=== PATIENT | male | born 1940 | race Caucasian/White ===

== ENCOUNTER 2018-02-04 12:29 | Emergency (ER) | payer MEDICARE, BC ==
[2018-02-04 12:29] VITALS: O2SAT 98
[2018-02-04 12:51] VITALS: BP 179/84; PULSE 52; RESP 16; TEMP 96.4
== END 2018-02-04 12:51 | disposition home or self-care (01) | DRG 151 ==
LOC: ED 12:29
DX: R04.0 Epistaxis (principal)
CPT/HCPCS: 99282

== ENCOUNTER 2018-02-25 10:10 | Day surgery (SDC) | payer MEDICARE, BC ==
[~2018-02-25 10:10] MED LIST: LIDOCAINE HCL 1% MPF 30 SOL ONE; PROPOFOL 500 MG/50 ML EMU IV ONE
[2018-02-25 12:20] VITALS: BP 161/82; PULSE 51; RESP 16; TEMP 98.2; O2SAT 99
== END 2018-02-25 12:35 | disposition home or self-care (01) | DRG 951 ==
LOC: SURG 10:10
PROVIDERS: ATTEND Surgery
DX: Z12.11 Encounter for screening for malignant neoplasm of colon (principal)
CPT/HCPCS: G0121; J2001; J2704

== ENCOUNTER 2019-04-06 11:00 | Emergency (ER) | payer MEDICARE, BC ==
[2019-04-06] MEDS ORDERED: TICAGRELOR 90 MG TAB PO ONE ×2 (11:08→11:11)
[2019-04-06] MEDS ORDERED: SODIUM CHLORIDE 0.9% FLUSH 10 ML SOL IV PRN (11:08)
[2019-04-06] MEDS ORDERED: ASPIRIN 81 MG CHEWABLE CTB PO STA (11:08)
[2019-04-06] MEDS ORDERED: HEPARIN SODIUM 5000 U/ML SOL IV ONE (11:08)
[2019-04-06] MEDS ORDERED: MORPHINE SULFATE 10 MG/ML SOL IV PRN (11:08)
[2019-04-06] MEDS ORDERED: HEPARIN SODIUM 5000 U/ML SOL ONE ×2 (11:11→11:41)
[2019-04-06] MEDS ORDERED: ASPIRIN 81 MG CHEWABLE CTB ONE (11:11)
[2019-04-06 11:16] LABS: BASOPHILS % (AUTO) 1 % (0-3); EOSINOPHILS % (AUTO) 6 % (0-9); HEMATOCRIT 45 % (39-53); HEMOGLOBIN 14.7 gm/dl (13.5-17.7); LYMPHOCYTES % (AUTO) 19.5 % (10-50); MEAN CORPUSCULAR HEMOGLOBIN 31.9 pg (27.0-32.0); MEAN CORPUSCULAR HGB CONC 32.6 gm/dl (32.0-36.0); MEAN CORPUSCULAR VOLUME 98 fL (80-100); MONOCYTES % (AUTO) 11.5 % (0-12); NEUTROPHILS % (AUTO) 62.3 % (37-80)
[2019-04-06] MEDS ORDERED: NITROGLYCERIN 0.4 MG TAB SL ONE (11:16)
[2019-04-06 11:22] LABS: INR 1.01 (0.86-1.12)
[2019-04-06] MEDS: NITROGLYCERIN 0.4 MG TAB SL PRN ×3 (11:22→11:40)
[2019-04-06 11:27] VITALS: TEMP 97
[2019-04-06 11:28] LABS: ALBUMIN 3.3 gm/dl (3.4-5.0); BILIRUBIN,TOTAL 0.3 mg/dl (0.2-1.0); CALCIUM 8.4 mg/dl (8.5-10.1); CARBON DIOXIDE 27.8 mEq/L (21-32); CREATININE 0.99 mg/dl (0.80-1.30); TOTAL PROTEIN 6.8 gm/dl (6.4-8.2); TROP I 0.164 ng/ml (0.000-0.056)
[2019-04-06] MEDS ORDERED: HEPARIN SODIUM 5000 U/ML 25,000 U in DEXTROSE 250 ML 250 ML IV SCH (11:45)
[2019-04-06 13:19] VITALS: O2SAT 96
[2019-04-06 13:20] VITALS: BP 161/83; PULSE 49; RESP 14
== END 2019-04-06 11:58 | disposition short-term general hospital (02) | DRG 282 ==
LOC: ED 11:00
DX: I21.3 ST elevation (STEMI) myocardial infarction of unspecified site (principal); I10 Essential (primary) hypertension; R07.9 Chest pain, unspecified; Z79.01 Long term (current) use of anticoagulants
CPT/HCPCS: 71045; 80053; 82550; 84484; 85025; 85610; 93005; 96374; 99285; 99291; J1644; A9270-GY

== ENCOUNTER 2019-06-05 17:28 | Emergency (ER) | payer MEDICARE, BC | END 2019-06-05 22:36 | disposition home or self-care (01) | LOC: ED 17:28 ==